=== PATIENT | male | born 1995 | race Caucasian/White ===

== ENCOUNTER 2019-09-18 04:01 | Emergency (ER) | payer OTHER ==
[~2019-09-18] VITALS: Ht 172.7 cm; Wt 74.8 kg
--- NOTE | ~2019-09-18 | EKG ---
[facility] [place] [address] ELECTROCARDIOGRAM REPORT Name: MARTHA JAY Room [facility]: [facility]#: [id number] Admission: 09/18/19 Attend Phys: Discharge: Date of : [birth year] Report #: [id number] THIS REPORT FOR: cc: JESSY Buckner family physician/PCP JESSY Buckner family physician/PCP Laurita Shay MD ~ THIS REPORT FOR: //name// [facility] ED Test Date: 2019-09-18 Test Time: 04:39:20 Pat Name: MARTHA JAY Department: Room: Gender: M Procurement Services Manager: magaly : 1995 Requested By: Tonya Flores Order Number: [id number] MD: Measurements Intervals [place] Rate: 74 P: 72 [place]: 161 QRS: 67 QRSD: 91 T: 46 QT: 391 QTc: 434 Interpretive Statements Sinus rhythm No previous ECG available for comparison [email or web address] By: [id number] Laurita Shay MD /EPI
[2019-09-18 05:33] LABS: ABSOLUTE NEUTROPHILS 3.9 thou/uL (1.4-8.2); BASOPHILS 0.5 % (0.0-2.0); EOSINOPHILS 3.4 % (0.0-3.0); HEMATOCRIT 40.4 % (42.0-52.0); HEMOGLOBIN 13.5 gm/dL (14.0-18.0); LYMPHOCYTES 22.2 % (24.0-44.0); MCH 29.3 pg (26.0-34.0); MCHC 33.3 g/dL (28.0-37.0); MCV 87.8 fL (80.0-100.0); PLATELET COUNT 204 thou/uL (150-400); POLYS 64.9 % (36.0-66.0); RDW 13.8 % (10.5-14.5); WBC 6.1 thou/uL (4.0-11.0)
[2019-09-18 05:41] LABS: ANION GAP 12 mmol/L (7-16); BUN 13 mg/dL (7-18); CALCIUM 8.9 mg/dL (8.5-10.1); CHLORIDE 102 mmol/L (98-107); CO2 24 mmol/L (21-32); CREATININE 1.1 mg/dL (0.7-1.3); GLUCOSE 113 mg/dL (74-106); POTASSIUM 3.9 mmol/L (3.5-5.1); SODIUM 138 mmol/L (136-145)
[2019-09-18 05:51] LABS: ALBUMIN 4.1 g/dL (3.4-5.0); MAGNESIUM 2.1 mg/dL (1.8-2.4); SGOT 18 U/L (15-37); SGPT 25 U/L (30-65); TOTAL BILIRUBIN 0.4 mg/dL (<0.1-1.0); TOTAL PROTEIN 7.5 g/dL (6.4-8.2); TROPONIN-I <0.06 ng/mL (<0.06)
[2019-09-18 07:14] VITALS: BP 135/69
== END 2019-09-18 06:40 | disposition home or self-care (01) ==
LOC: ER 04:01
PROVIDERS: Student in an Organized Health Care Education/Training Program
DX: T40.7X1A Poisoning by cannabis (derivatives), accidental (unintentional), initial encounter (principal); F32.9 Major depressive disorder, single episode, unspecified; F41.9 Anxiety disorder, unspecified; Y92.89 Other specified places as the place of occurrence of the external cause

== ENCOUNTER 2020-11-01 15:06 | Emergency (ER) | payer OTHER ==
[~2020-11-01] VITALS: Ht 172.7 cm; Wt 86.2 kg
[2020-11-01] MEDS ORDERED: BUSPIRONE HCL10 MG PO (15:12)
[2020-11-01] MEDS ORDERED: CELEXA 20 MG TA20 MG PO (15:13)
[2020-11-01 15:54] LABS: ABSOLUTE NEUTROPHILS 3.2 thou/uL (1.4-8.2); BASOPHILS 0.3 % (0.0-2.0); EOSINOPHILS 2.5 % (0.0-3.0); HEMOGLOBIN 13.3 gm/dL (14.0-18.0); LYMPHOCYTES 21.4 % (24.0-44.0); MCH 27.4 pg (26.0-34.0); MCHC 32.5 g/dL (28.0-37.0); MCV 84.3 fL (80.0-100.0); MONOCYTES 9.3 % (1.0-8.0); PLATELET COUNT 218 thou/uL (150-400); POLYS 66.5 % (36.0-66.0); RBC 4.86 mil/uL (4.50-6.00); WBC 4.8 thou/uL (4.0-11.0)
[2020-11-01 16:03] LABS: ANION GAP 5 mmol/L (7-16); BUN 16 mg/dL (7-18); CALCIUM 8.9 mg/dL (8.5-10.1); CHLORIDE 103 mmol/L (98-107); CO2 27 mmol/L (21-32); GLUCOSE 113 mg/dL (74-106); POTASSIUM 4.3 mmol/L (3.5-5.1); SODIUM 135 mmol/L (136-145)
[2020-11-01 16:13] LABS: TROPONIN-I <0.06 ng/mL (<0.06)
[2020-11-01 16:42] VITALS: BP 139/87
--- NOTE | 2020-11-02 07:16 | EKG ---
[address] [address] ELECTROCARDIOGRAM REPORT Name: DON JAY [id number] Admission: 11/01/20 Attend Phys: Discharge: 11/01/20 Date of : [birth year] Report #: [id number] [facility] ED Test Date: 2020-11-01 Test Time: 15:27:21 Pat Name: DON JAY Department: Room: Gender: Cafe Site Attendant: lon : 1995 Requested By: Teddy Davis Order Number: [id number] MD: Don Pettit Measurements Intervals [place] Rate: 80 P: 39 RI: 149 QRS: 41 QRSD: 95 T: 22 QT: 352 QTc: 406 Interpretive Statements Sinus rhythm Compared to ECG 09/18/2019 04:39:20 No significant changes Electronically Signed On 11-02-2020 7:16:23 CDT by Don Pettit [email or web address] <ELECTRONICALLY SIGNED> By: Don Pettit MD, [facility] 11/02/20 0716 1527 1527 Don Pettit MD, FACC /EPI
== END 2020-11-01 16:42 | disposition home or self-care (01) ==
LOC: ER 15:06
PROVIDERS: Nurse Practitioner
DX: R07.89 Other chest pain (principal); R06.00 Dyspnea, unspecified; Z79.899 Other long term (current) drug therapy